=== PATIENT | female | born 1965 | race Two or more races ===

== ENCOUNTER → 2024-05-23 | Outpatient (CLI) | payer OTHER, SELFPAY ==
--- NOTE | 2024-05-23 07:30 | XR_ITS ---
Examination: Breast ultrasound complete, bilateral Date and time of exam: May 23, 2024 0728 hours INDICATIONS: Mammogram September 24, 2023 focal asymmetry upper right and left breast, bilateral breast sonography September 24, 2023 probable glandular tissue 10:00 position right breast 1:00 nodule left breast 4 mm Technique: Real-time grayscale ultrasonographic imaging bilateral breasts, including all 4 quadrants as well as nipple retroareolar and axillary regions. Findings: Sonographic images right breast 12:00 cyst 8 x 4 x 7 mm No solid nodules Sonographic images left breast 1:00 nodule 3 x 3 x 4 mm lobular margins IMPRESSION: BI-RADS Category 3: Probably benign findings One additional 6 month left breast sonogram follow-up is needed to document stability of 1:00 nodule left breast described above
--- NOTE | 2024-05-23 08:30 | XR_ITS ---
Examination: Diagnostic digital mammography, bilateral Computer aided detection 3-D breast Tomosynthesis, bilateral Date and time of exam: May 23, 2024 0756 hrs. Indications: Mammogram September 24, 2023 focal asymmetry upper right and left breast Technique: Nonmagnified MLO, CC views of the breasts to been obtained, reconstructed from 3-D Tomosynthesis images. R2 computer aided detection program utilized for evaluation of suspicious masses and/or abnormal calcifications. 3-D Tomosynthesis images obtained. Findings: The breasts are heterogeneously dense, which may obscure small masses No suspicious nodules depicted on the follow-up spot compression and routine mammographic views Focal asymmetry remains upper left breast, 5 mm Impression: BI-RADS Category 3: Probably benign findings One additional 6 month left mammogram follow-up is needed to document stability of focal asymmetry upper left breast on the MLO view.
== END | disposition home or self-care (01) ==
PROVIDERS: Referring Provider Nurse Practitioner Family; Visit Provider Nurse Practitioner Family
DX: R92.333 Mammographic heterogeneous density, bilateral breasts (principal); N64.89 Other specified disorders of breast; N63.21 Unspecified lump in the left breast, upper outer quadrant
CPT/HCPCS: 76641; 77062; 77066; G0279

== ENCOUNTER 2024-06-30 11:31 | Emergency (ER) | payer OTHER, SELFPAY ==
[2024-06-30 11:32] VITALS: BMI 29.8
[2024-06-30 11:48] VITALS: BP 165/81; PULSE 68; RESP 18; TEMP 36.8; O2SAT 97
--- NOTE | 2024-06-30 12:40 | XR_ITS ---
Examination: Duplex scan of the lower extremity, unilateral left complete Date and time of exam: June 30, 2024 1255 hours INDICATIONS: Left leg swelling and pain beginning 3 days ago Technique: Duplex scan of the extremity veins using B-mode/grayscale imaging and Doppler spectral analysis and color flow Attention is directed to internal echogenicity, compression and augmentation involving these veins, color flow assessment, spectral analysis Findings: Major deep venous structures in the extremity demonstrate normal course and caliber. There is no evidence of deep vein thrombosis. Normal color flow and spectral analysis Impression: Negative for DVT..
--- NOTE | 2024-06-30 12:40 | XR_ITS ---
Examination: Knee, left , 3 views Technique: Knee AP, lateral, oblique 3 views Date and time of exam: June 30, 2024 1347 hours INDICATIONS: Swollen knee with knee pain beginning 3 days ago. FINDINGS: Moderate osteopenia. No acute fracture. No cortical bone destruction Small knee effusion IMPRESSION: Small knee effusion
--- NOTE | 2024-06-30 12:41 | PD.EDLOWEX ---
Lower Extremity Injury RME/HPI General Chief Complaint: Extremity Injury, Lower Stated Complaint: LEFT HAMSTRING PAIN Time Seen by Provider: 06/30/24 11:52 Arrival date/time: 06/30/24 11:31 RME / HPI RME / HPI Narrative: 59-year-old female patient with history of hypertension came in for evaluation regarding left knee pain. Patient been having posterior thigh/knee pain for several days however this morning woke up with swelling severity mild. Patient denies any trauma denies any redness denies any fever denies any other complaints denies any shortness of breath or chest pain. Patient also denies any long travel or sitting in a plane or car for very long time. Denies any history of DVT or blood clots. She is not taking any blood thinner. Related Data Home Medications ?Medication ?Instructions ?Recorded ?Confirmed losartan 100 1 tab PO QDAY 04/30/22 03/05/23 mg-hydrochlorothiazide 12.5 mg tablet Previous Rx's ?Medication ?Instructions ?Recorded naproxen 500 mg tablet (Naprosyn) 500 mg PO BID PRN pain #30 tabs 06/30/24 Allergies Allergy/AdvReac Type Severity Reaction Status Date / Time apricot Allergy Intermediate Hives Verified 06/30/24 11:34 Review of Systems Review of Systems Narrative Review of Systems: Review of system reviewed and within normal limits except mentioned in HPI ED Exam Narrative Physical exam: VITAL SIGNS: Reviewed. GENERAL APPEARANCE: Alert and interactive, follows commands, no acute distress, HEAD AND FACE: Non-traumatic. ENT: PERRL, pink conjunctivitis, eyelid no trauma, Mucous membrane moist. NECK: Supple, nontender, no nuchal rigidity. CHEST: No tenderness, no crepitus, no paradoxical movement, no retractions. LUNGS: Clear, well ventilated, symmetric, no rales, no wheezing, no ronchi, no stridor, good breath sounds bilaterally. HEART: Regular rate, regular rhythm, no murmur, no gallops. ABDOMEN: Soft, positive bowel sounds, nondistended, no guarding, nontender, no rebound, no masses, RECTAL: Deferred. GENITAL: Deferred. NEUROLOGICAL: Gross motor function intact sensory function intact, Appropriate for age. MUSCULOSKELETAL: low back nontender, full range of motion. EXTREMITIES: Posterior knee, distal thigh swelling and tenderness no redness, full range of motion. SKIN: Color pink, dry, no rash, no lacerations, no abrasions, no contusions. LYMPHATICS: Deferred. Course Quality Measures none Orders Category Date Time Status US venous doppler LE LT Stat Exams 06/30/24 12:40 Completed XR knee LT 3V Stat Exams 06/30/24 12:40 Completed Vital Signs Vital signs: Vital Signs Temperature 98.2 F 06/30/24 11:48 Pulse Rate 68 06/30/24 11:48 Respiratory Rate 18 06/30/24 11:48 Blood Pressure 165/81 H 06/30/24 11:48 Pulse Oximetry (%) 97 06/30/24 11:48 Oxygen Delivery Method Room Air 06/30/24 11:48 Extremity Injury, Lower MDM Narrative MDM Narrative:: 59-year-old female patient with history of hypertension came in for evaluation regarding left knee pain. Patient been having posterior thigh/knee pain for several days however this morning woke up with swelling severity mild. Patient denies any trauma denies any redness denies any fever denies any other complaints denies any shortness of breath or chest pain. Patient also denies any long travel or sitting in a plane or car for very long time. Denies any history of DVT or blood clots. She is not taking any blood thinner. Ultrasound of the left lower extremities negative for DVT. X-ray of the knee showed minimal knee effusion. Patient results discussed with the patient. Patient was advised to follow-up with knee specialist for possible arthrocentesis if effusion is getting worse. Patient appears nontoxic and hemodynamically stable. Patient discharged home and instructed to follow-up with primary care provider in 24 to 48 hours. Instructed to return to the emergency department immediately if worsening of symptoms Patient data External records reviewed:: None Clinical information provided by:: none Social determinants that could affect healthcare access:: none Patient has the following chronic illnesses:: Hypertension How is presenting disease/condition affected by chronic disease/condition?: uneffected by Evaluation data The following diagnostics were reviewed and interpreted by me:: radiology exam(s) Lab and/or radiology exams considered but not ordered:: None Interpretation Summary: See results MDM Medications / Prescriptions Medications or Prescriptions considered but not ordered:: Plan Medication administrations:: None Consultations Consultation(s) initiated? (list below): No Diagnosis Extremity Injury, Lower Differential Diagnosis: other (Knee pain knee effusion, DVT) Most likely diagnosis given after review of the tests above:: Knee effusion Admission Indicated Admission indicated?: not indicated Explain why admission is indicated or not indicated:: Stable Admission Request Was there a request for admission?: No Disposition Plan Disposition Plan: Discharge Discharge Attestation Discharge Attestation: The patient was given an opportunity to ask questions and understood the discharge instructions. Discharge instructions specifically effects, indications for sooner follow up or return to the emergency department, and the expected course of current diagnosis. Patient condition: Stable Discharge Plan Plan Patient Disposition: HOME (Self Care) Disposition Comment: Stable Prescriptions/Referrals Prescriptions/Med Rec: New naproxen [Naprosyn] 500 mg tablet 500 mg PO BID PRN (Reason: pain) Qty: 30 0RF No Action losartan-hydrochlorothiazide 100-12.5 mg tablet 1 tab PO QDAY Referrals: Nallely Teague INTERN ARCHITECT [Primary Care Provider] - In 1 week Problem List Clinical Impression: Effusion of knee Patient/Caregiver Discharge Instructions Discharge Activity: activity as tolerated Education Materials: ED Knee Effusion Additional Instructions: Thank you for the opportunity for serving you today. You are stable for discharged . You are advised to: Follow-up with your PCP in 1 to 2 days and ask for referral to knee specialist Return to ED for worsening of symptoms Increase oral fluids Take medication as prescribed Print Language: Persian Stand Alone Forms: [facility] Award Info., Patient Portal Info Letter
== END 2024-06-30 15:33 | disposition home or self-care (01) ==
PROVIDERS: Emergency Provider Emergency Medicine; PCP Nurse Practitioner Family
DX: M25.462 Effusion, left knee (principal); I10 Essential (primary) hypertension
CPT/HCPCS: 73562; 93971; 99284

== ENCOUNTER → 2024-07-24 | Outpatient (CLI) | payer OTHER, SELFPAY ==
[2024-07-24 10:17] LABS: Basophils # (Auto) 0.1 Thou/mm3 (0.0-0.2); Basophils % (Auto) 1 % (0-2.5); Eosinophils # (Auto) 0.2 Thou/mm3 (0.0-0.5); Eosinophils % (Auto) 3 % (0-10); Hematocrit 41.8 % (36.0-46.0); Hemoglobin 13.7 g/dL (12.0-16.0); Immature Granulocytes % (Auto) 1 % (0-0); Immature Granulocytes Auto 0.04 Thou/mm3 (0.00-0.00); Lymphocytes # (Auto) 2.3 Thou/mm3 (1.0-4.8); Lymphocytes % (Auto) 35 % (10-50); Mean Corpuscular HGB Conc 32.8 g/dl (31.0-37.0); Mean Corpuscular Hemoglobin 31.1 pg (25.0-35.0); Mean Corpuscular Volume 95 fL (80-100); Monocytes # (Auto) 0.5 Thou/mm3 (0.0-0.8); Monocytes % (Auto) 7 % (0-12); Neutrophils # (Auto) 3.6 Thou/mm3 (1.8-7.7); Neutrophils % (Auto) 53 % (37-80); Nucleated Red Blood Cell % 0 /100 WBC (0); Platelet Count 371 Thou/mm3 (140-440); RDW Standard Deviation 41.7 fL (36.4-46.3); White Blood Count 6.7 Thou/mm3 (3.6-11.0)
[2024-07-24 10:31] LABS: Glucose Estimated Average 105 mg/dL (80-131); Hemoglobin A1C 5.3 % Hgb (4.8-6.0)
[2024-07-24 10:47] LABS: Alanine Aminotransferase 25 U/L (10-49); Albumin, Serum 4.4 gm/dL (3.4-4.8); Albumin/Globulin Ratio 1.8 (1.2-2.2); Alkaline Phosphatase 86 U/L (46-116); Anion Gap 8 (7-16); Aspartate Amino Transferase 21 U/L (0-34); BUN/Creatinine Ratio 19 Ratio (12-20); Bilirubin,Total 0.8 mg/dL (0.3-1.2); Blood Urea Nitrogen 15 mg/dL (9-23); Calcium 9.7 mg/dL (8.3-10.6); Calcium (Corrected) 9.7 mg/dL (8.5-10.1); Carbon Dioxide 29.3 mMol/L (20.0-31.0); Cardiac Risk Estimate 2.6 RATIO (3.7-5.6); Chloride 104 mMol/L (98-107); Cholesterol 202 mg/dL (132-200); Creatinine (Component) 0.8 mg/dL (0.6-1.3); Globulin 2.5 gm/dL (2.3-3.5); Glucose 97 mg/dL (74-106); HDL Cholesterol 78 mg/dL (40-60); LDL Cholesterol,Calculated 105 mg/dL (0-130); Osmolality,Calculated 282 (275-295); Sodium 141 mMol/L (136-145); Thyroid Stimulating Hormone 3.28 uIU/mL (0.55-4.78); Total Protein 6.9 gm/dL (5.7-8.2); Triglycerides 93 mg/dL (30-150); eGFR > 60 See Note
[2024-07-24 10:56] LABS: Collection Type, Urine Clean Catch; RBC,Urine 0 /hpf (0-3)
[2024-07-24 11:34] LABS: Bacteria,Urine Rare; Bilirubin,Urine Negative (Negative); Blood,Urine Negative (Negative); Clarity,Urine Clear (Clear/Hazy); Color,Urine Colorless (Lt Yel-Yel); Culture Indicated,Urine Not Indicated; Glucose, Urine Negative (Negative); Ketones,Urine Negative (Negative); Leukocyte Esterase,Urine Negative (Negative); Nitrite,Urine Negative (Negative); Protein,Urine Negative (Neg - Trace); Specific Gravity,Urine 1.009 (1.001-1.035); Squamous Epithelial Cell,Urine 2 /hpf (0-5); Urobilinogen,Urine Negative mg/dL (0.0-1.0); WBC,Urine 1 /hpf (0-5)
== END | disposition home or self-care (01) ==
LOC: COPL 09:31
PROVIDERS: PCP Nurse Practitioner Family; Referring Provider Nurse Practitioner Family; Visit Provider Nurse Practitioner Family
DX: Z00.00 Encounter for general adult medical examination without abnormal findings (principal); I10 Essential (primary) hypertension; E03.9 Hypothyroidism, unspecified
CPT/HCPCS: 36415; 80053; 80061; 81001; 83036; 84443; 85025

== ENCOUNTER → 2024-11-09 | Outpatient (CLI) | payer OTHER, SELFPAY ==
--- NOTE | 2024-11-09 | XR_ITS ---
Examination: Right knee 2 views Technique one AP lateral right knee 2 views Date and time: November 09, 2024 0745 hours INDICATIONS: Left knee swelling and pain beginning 5 years ago. FINDINGS: Early osteoarthritis medial patellofemoral joints Small knee effusion No fracture IMPRESSION: Early osteoarthritis
== END | disposition home or self-care (01) ==
LOC: CDIM 07:29
PROVIDERS: PCP Family Medicine; Referring Provider Registered Nurse; Visit Provider Registered Nurse
DX: M17.12 Unilateral primary osteoarthritis, left knee (principal)
CPT/HCPCS: 73560

== ENCOUNTER → 2024-11-28 | Outpatient (CLI) | payer OTHER, SELFPAY ==
--- NOTE | 2024-11-28 10:00 | XR_ITS ---
Examination: Breast ultrasound, unilateral, left Date and time of exam: November 28, 2024, 10:10 AM. INDICATIONS: Mammogram September 24, 2023 focal asymmetry upper and outer left breast, 1:00 nodule left breast with lobular margins on ultrasound May 23, 2024 Technique: Real-time foster scale ultrasonographic imaging performed left breast including all 4 quadrants as well as nipple retroareolar and axillary region. Findings: 1:00 nodule lateral margins 5 x 7 mm 1:00 nodule circumscribed 5 x 6 mm IMPRESSION: BI-RADS Category 3: Probably benign findings, recommend one additional 6 month left breast sonogram follow-up
--- NOTE | 2024-11-28 10:30 | XR_ITS ---
Examination: Diagnostic digital mammography, unilateral, left Computer aided detection 3-D breast Tomosynthesis, unilateral Date and time of exam: November 28, 2024 1017 hours INDICATIONS: Mammogram September 24, 2023 focal asymmetry upper right and left breast Technique: Nonmagnified MLO, CC views of the left breast have been obtained, reconstructed from 3-D Tomosynthesis images. R2 computer aided detection program utilized for evaluation of suspicious masses and/or abnormal calcifications. 3-D Tomosynthesis images obtained. Findings: The breast is heterogeneously dense, which may obscure small masses 6 mm focal asymmetry is noted 12:00 position left breast on the spot compression views Impression: BI-RADS category 3: Probably benign findings Recommend continued 6 month left mammogram follow-up
== END | disposition home or self-care (01) ==
PROVIDERS: PCP Nurse Practitioner Family; Referring Provider Nurse Practitioner Family; Visit Provider Nurse Practitioner Family
DX: N63.21 Unspecified lump in the left breast, upper outer quadrant (principal); R92.332 Mammographic heterogeneous density, left breast; N64.89 Other specified disorders of breast
CPT/HCPCS: 76641; 77061; 77065; G0279